=== PATIENT | female | born 1965 | race Caucasian/White ===

== ENCOUNTER 2023-08-15 14:55 | Inpatient (IN) | payer BC ==
[2023-08-15] MEDS ORDERED: Ondansetron 4 MG Tab.DIS PO PRN (17:07)
[2023-08-15] MEDS ORDERED: HYDROmorphone 0.5 MG/0.5 ML Syringe IVPUSH PRN (17:07)
[2023-08-15] MEDS ORDERED: hydrOXYzine HCl 25 MG Tab PO PRN (17:10)
[2023-08-15] MEDS ORDERED: Polyethylene Glycol 3350 Powder 17 GM Packet PO PRN (17:10)
[2023-08-15] MEDS: oxyCODONE 5 MG Tab PO SCH ×2 (18:21→22:31)
[2023-08-15] MEDS: Acetaminophen 325 MG Tab PO PRN (19:12)
[2023-08-15] MEDS: Ketorolac 30 MG/ML SDV IVPUSH PRN (19:55)
[2023-08-15] MEDS: Aspirin 325 MG Tab.EC PO SCH (22:31)
[2023-08-15] MEDS: Latanoprost 0.005% Ophth Soln 2.5 ML Bottle EYEBOTH SCH (22:31)
[2023-08-16] MEDS: Sennosides 8.6 MG Tab PO SCH (00:44)
[2023-08-16] MEDS: Pantoprazole 40 MG Tab.CR PO SCH (06:00)
[2023-08-16 06:38] LABS: HEMATOCRIT 31.6 % (33.0-47.0); MEAN CORPUSCULAR HEMOGLOBIN 31.4 pg (26.0-32.0); MEAN CORPUSCULAR HGB CONC 34.8 g/dL (32.0-36.0); MEAN CORPUSCULAR VOLUME 90.3 fL (78.0-93.0); RED BLOOD CELL COUNT 3.5 x10^6/uL (4.00-5.50); WHITE BLOOD CELL COUNT,WBC 9.2 x10^3/uL (4.0-10.0)
[2023-08-16] MEDS: Cholecalciferol (Vitamin D3) 25 MCG Tab PO SCH (09:15)
[2023-08-16] MEDS: Calcium Carbonate/Vitamin D3 1250 MG-5 MCG Tab PO SCH (09:15)
[2023-08-16] MEDS: Sertraline 25 MG Tab PO SCH (09:15)
[2023-08-16] MEDS: ALGAL OIL PO SCH (09:16)
[2023-08-16] MEDS: LEVOMEFOLATE PO SCH (09:16)
[2023-08-17] MEDS: Ketorolac 30 MG/ML SDV IM PRN (09:09)
[2023-08-20] MEDS: Ketorolac 10 MG Tab PO SCH (11:06)
[2023-08-20] MEDS: Acetaminophen 325 MG Tab PO SCH (13:55)
[2023-08-20] MEDS: Bisacodyl 10 MG Supp RECTAL ONE (20:09)
[2023-08-21] MEDS: oxyCODONE 5 MG Tab PO PRN (03:19)
[2023-08-22 05:41] VITALS: BP 136/81; PULSE 71
== END 2023-08-22 13:30 | disposition home or self-care (01) | DRG 862 ==
LOC: VM.MS 15:21
PROVIDERS: ADMIT Family Medicine; ATTEND Family Medicine
DX: Z47.1 Aftercare following joint replacement surgery (principal); D64.9 Anemia, unspecified; F43.12 Post-traumatic stress disorder, chronic; F44.81 Dissociative identity disorder; E66.9 Obesity, unspecified; F41.9 Anxiety disorder, unspecified; Z96.652 Presence of left artificial knee joint; Z66 Do not resuscitate; Z79.899 Other long term (current) drug therapy; Z79.82 Long term (current) use of aspirin; Z68.33 Body mass index [BMI] 33.0-33.9, adult; Z88.8 Allergy status to other drugs, medicaments and biological substances; Z88.2 Allergy status to sulfonamides; Z91.011 Allergy to milk products; Z91.048 Other nonmedicinal substance allergy status
CPT/HCPCS: 36415; 85027; 97110-GP; 97116-GP; 97161-GP; A9270-GY; J1885